=== PATIENT | female | born 1950 | race Caucasian/White ===

== ENCOUNTER 2016-07-10 12:57 | Inpatient (IN) ==
[2016-07-10] MEDS ORDERED: SODIUM CHLORIDE 0.9% 500 ML IV STA (13:31)
--- NOTE | 2016-07-10 13:41 | Emergency Department Note ---
IJan Gwan, am scribing for, and in the presence of, Esdras Salvador MD 13:31 . IMadeleine James D, MD, personally performed the services described in this documentation, ascribed by Clrae Montoya in my presence, and it is both accurate and complete 339 . Arrival - Arrival Chief Complaint: Syncope Stated Complaint: syncope ED Nursing Triage Note: has been generally weak for approx 2 wks but today passed out for over a minute when spouse made her get out of bed ems recorded 84 systolic bp and 46 heart rate on 12 lead on scene FSG 91 VS are better now pt is alert but doesnt remember this morning generally weak at this time Mode of Arrival: Stretcher Limitations: No Limitations Source: Patient, Old Records Reviewed, RN Notes Reviewed - History of Present Illness HPI Narrative: Patient is a 66 y/o female who presents to the ED with a c/o generalized weakness with an onset 2 weeks ago. Patient then stated that she had a syncopal episode when she was getting out of bed at home. stated that pt told him that she was in pain. This prompted him to give pt .5 of Percocet that was not prescribed to pt. said that pt got out of bed and washed dishes. 30 minutes later, attempted to get pt out of bed again and this is when she had the syncopal episode that last a few minutes. He continued to note that pt had not eaten anything that morning, that she got pale right before episode and that she became nauseous. denied that pt lost incontinence or that she was diaphoretic. Pt has a PMHx of HTN, CVA, Alzheimers and Carotid Endarterectomy. Onset (ago): week(s) Consistency: constant Severity: moderate Allergies/Adverse Reactions: Allergies Allergy/AdvReac Type Severity Reaction Status Date / Time No Known Allergies Allergy Verified 02/29/16 09:43 Home Medications: Home Medications Medication Instructions Recorded Confirmed Type Atorvastatin [Lipitor] 80 mg PO QAM 06/02/15 07/10/16 History Donepezil HCl 10 mg PO QPM 06/02/15 07/10/16 History Loratadine [Claritin] 10 mg PO QPM 06/02/15 07/10/16 History Lisinopril [Prinivil] 10 mg PO QPM 02/12/16 07/10/16 History Memantine [Namenda] 10 mg PO BID 02/12/16 07/10/16 History Aspirin EC Tab 81 mg PO QPM 07/10/16 07/10/16 History Clopidogrel Bisulfate [Clopidogrel] 75 mg PO QPM 07/10/16 07/10/16 History Clorazepate [Tranxene] 3.75 mg PO TID 07/10/16 07/10/16 History Fluoxetine HCl [Fluoxetine HCl] 40 mg PO QAM 07/10/16 07/10/16 History amLODIPine [Norvasc] 10 mg PO QPM 07/10/16 07/10/16 History Review of System - Review of System 12 point system: reviewed and no additional remarkable complaints except as stated - Review of System Constitutional: Present: as per HPI, weakness. Absent: chills, fever Eyes: Absent: discharge, pain Head/Ears/Nose/Throat: Absent: earache Cardiovascular: Present: as per HPI, syncope Gastrointestinal: Absent: abdominal pain, nausea, diarrhea Genitourinary female: Absent: abnormal menses, dysuria Musculoskeletal: Absent: arm pain Skin: Absent: rash, lesions Neurological: Present: as per HPI, weakness Medical,Surgical,& Family Hx - Medical History Cardio: History of: Hypertension Psychological: History of: Depression Neurology: History of: Cerebrovascular Accident (15 YRS AGO), Dementia ( ALZHEIMERS X 5 YEARS) No history of: Seizures HEENT: History of: Eye Problem (GLASSES) Other: No history of: Anesthesia Reactions - Surgical History Cardiac Surgeries: Sugical HX of: Carotid Endarterectomy (15 YRS AGO) HEENT Surgeries: Surgical HX of: Carotid Endarterectomy (15 YRS AGO) Reproductive Surgeries: Surgical HX of;: Hysterectomy - Family History Family History: Reports;: Family Heart Disease (father, sisters), Family Hypertension (sisters), Family Stroke (sisters) - Social History Smoking Status: Never smoker Exam Physical Examination: GENERAL: This is a chronically ill-appearing white female in no apparent distress. VITAL SIGNS: HEENT: Head is normocephalic and atraumatic. Pupils are equally round and reactive to light. Extraocular movement are intact. Oropharynx is benign with moist mucous membranes. NECK: Neck is soft and supple without tenderness. There are no masses. There is no lymphadenopathy. LUNGS: Lungs are clear to auscultation bilaterally. Chest rises symmetrically. There is no chest wall tenderness. CV: Heart is regular rate and rhythm without murmurs, rubs, or gallops. ABDOMEN: Abdomen is soft, non-tender to palpation. There are no abnormal masses palpated. There is no organomegaly. Bowel sounds are present and active. SKIN: Skin is warm and dry. No rash. EXTREMITIES: Patient has full range of motion without tenderness. There is no pedal edema. NEUROLOGIC: Awake, alert, and oriented to person. Cranial nerves II through XII are grossly intact. There are no motorsensory deficits. PSYCHIATRIC: Normal affect. Normal mood. Vital Signs: Vital Signs Temperature 97.8 F 07/10/16 12:59 Pulse Rate 51 L 07/10/16 12:59 Respiratory Rate 12 07/10/16 13:40 Blood Pressure 162/53 07/10/16 12:59 O2 Sat by Pulse Oximetry 98 07/10/16 12:59 Results - Labs CBC & BMP: 07/10/16 14:02 07/10/16 14:02 Lab Results: I have reviewed the patients labs - EKG EKG results: interpreted by ERMD - Impressions EKG: Sinus bradycardia with a rate of 50, normal ST-T waves, normal axis. - Diagnostic Findings Procedure: Chest x-ray: image reviewed by me (No infiltrates, no pleural effusions.), CT: image reviewed by me, report reviewed by me (Head CT: 1. Old left middle cerebral artery distribution infarction with underlying encephalomalacia change and porencephalic cystic change. 2. No acute hemorrhage or infarction or mass effect clearly seen. 3. Atrophy.) Disposition Clinical Impression: Syncope, Carotid artery disease, Old left middle cerebral artery infarct Case discussed with: patient Disposition: Still a Patient Condition: Stable
--- NOTE | 2016-07-10 13:46 | CT Report ---
Exam: CT scan of brain without contrast Date: 07/10/2016 Indication: Syncopal episode Comparison: 10/08/2015 Patient's classification: Emergency department Technical: Images were obtained from the skull base to the vertex without the use of intravenous contrast. Dose reduction was performed with decreasing kv and mA and automated exposure Total DLP: 914.6 mGy*cm Findings: Examination reveals encephalomalacia change and old infarction involving the left middle cerebral artery distribution with porencephalic cystic change left lateral ventricle. Component of global atrophy is present the brainstem is intact the cerebellum is unremarkable. The calvarium is intact. The paranasal sinuses globes and sella mastoids are unremarkable. Impression: 1. Old left middle cerebral artery distribution infarction with underlying encephalomalacia change and porencephalic cystic change. 2. No acute hemorrhage or infarction or mass effect clearly seen. 3. Atrophy PROCEDURE INTERPRETED AT [facility] DEPARTMENT OF RADIOLOGY Final Report Signed by: Dr. Joseph Vazquez
--- NOTE | 2016-07-10 13:56 | XRay Report ---
Portable chest Date: 07/10/2016 Clinical history: Shortness of breath Comparison: 02/11/2016 Technique: Portable AP sitting chest Findings: The heart is normal in size with calcification in the aortic knob. The lungs and mediastinum are stable in appearance with no acute osseous findings. Impression: No acute cardiopulmonary pathology identified. PROCEDURE INTERPRETED AT [facility] DEPARTMENT OF RADIOLOGY Final Report Signed by: Dr. Nelsy Lema
[2016-07-10 14:11] LABS: Basophils % 0.4 % (0.0-0.8); Eosinophils # 0.2 10*3/uL (0.0-0.87); Eosinophils % 3.3 % (0.00-10.9); Hematocrit 31.2 VOL% (35.7-47.0); Immature Granulocytes % 0.4 %; Immature Granulocytes Absolute 0.02 #; Lymphocytes # 0.7 10*3/uL (1.4-4.0); Lymphocytes % 15.3 % (21.3-54.2); Mean Corpuscular HGB Conc 35.3 GM/DL (32-36); Mean Corpuscular Hemoglobin 31 PG (27-34); Mean Corpuscular Volume 88.4 FL (87-102); Mean Platelet Volume 10.2 FL (9.6-12.0); Monocytes # 0.4 10*3/uL (0.11-0.8); Monocytes % 8.6 % (1.7-12.7); Neutrophils # 3.4 10*3/uL (1.4-7.4); Platelet Count 219 T/CUMM (130-400); Red Blood Count 3.53 MC/CUMM (3.8-5.5); Red Cell Distribution Width 12.4 % (9.3-17.3); White Blood Count 4.8 T/CUMM (4-12)
[2016-07-10 14:20] LABS: PT Patient Result 10.5 SECS
[2016-07-10 14:37] LABS: Alanine Aminotransferase 25 U/L (13-56); Albumin 3.8 G/DL (3.4-5.0); Alkaline Phosphatase 114 U/L (45-117); Aspartate Amino Transferase 23 U/L (0-37); Blood Urea Nitrogen 18 MG/DL (7-18); Calcium 8.7 MG/DL (8.5-10.1); Glucose 82 MG/DL (74-106); Osmolality,Calculated 279.4 MOS/KG (273-304); Potassium 4.1 MMOL/L (3.5-5.1); Sodium 140 MMOL/L (136-145); Total Protein 6.5 G/DL (6.4-8.3); Troponin I Only < 0.015 NG/ML (0.00-0.045)
[2016-07-10 15:49] LABS: Apearance,Urine CLEAR (Clear); Bacteria,Urine Occasional /HPF (Few); Bilirubin,Urine Negative (Negative); Blood, Urine Negative (Negative); Glucose,Urine (UA) Negative (Negative); Ketones,Urine Negative (Negative); Mucus,Urine Occasional /LPF (Occasional); Nitrite,Urine Negative (Negative); Protein,Urine Negative; RBC,Urine 1 /HPF (0-4); Squamous Epithelial Cell,Urine Occasional /HPF (0-10); Urine Color Yellow (Yellow); Urine Specific Gravity 1.006 (1.001-1.035); Urine Urobilinogen < 2.0 EU/DL (0.2-1.0); WBC,Urine 3 /HPF (0-6)
[2016-07-10 15:50] LABS: Barbiturates Screen,Urine Negative (Negative); Benzodiazepines Screen,Urine Positive (Negative); Cannabinoid Screen,Urine Negative (Negative); Opiate Screen,Urine Negative (Negative); Phencyclidine Screen,Urine Negative (Negative)
[2016-07-10] MEDS ORDERED: DOCUSATE SODIUM 100 MG CAPSULE PO PRN (16:07)
[2016-07-10] MEDS ORDERED: ONDANSETRON 4 MG/2 ML VIAL IV PRN (16:07)
[2016-07-10] MEDS ORDERED: ACETAMINOPHEN 325 MG TABLET PO PRN (16:07)
[2016-07-10] MEDS ORDERED: ZALEPLON 5 MG CAPSULE PO PRN (16:07)
--- NOTE | 2016-07-10 16:11 | Hospitalist History & Physical ---
<Pastora Davisda - Last Filed: 07/10/16 16:48> Assessment and Plan (1) Bradycardia Status: Acute Assessment and plan: Heart rate in 50's at the time of ED presentation. Review of EKG revealed bradcardia on last encounter 02/07; this may be her baseline. Will monitor; if symptomatic; will consult cardiology. Current Visit: Yes (2) Syncope Status: Acute Assessment and plan: The patient has experienced episodes similar in nature in the past. We will conduct a syncope work-up and review. Not sure if this was truly syncope, reported at ED triage that he gave patient Percocet; this could be the causative factor; however we will work-up. Current Visit: Yes (3) EDEL (acute kidney injury) Status: Acute Assessment and plan: Creatinine 1.40 at admission; upon review of previous records; her baseline is around 1.5. We will monitor. Current Visit: No History of Present Illness Chief complaint: syncope History of present illness: This is a very pleasantly confused 66 year old female that presented to the ED at [facility] per EMS for evaluation of syncope. She has a very complex medical history significant for dementia, syncope, hypertension, coronary artery disease, and cerebral vascular accident.She has a surgical history of hysterectomy and carotid endarterectomy The patient is a poor historian; her is at bedside; he will serve as historian. Per report, the patient was walking when the episode occurred. He reports that she became lightheaded and attempted to grab the door frame for support from falling. He was unable to support her weight, so he guided her to the floor. He reports that she did strike her head; however did not lose consciousness. He reports that he requested assistance from a friend who was there mowing the yard to assist her off the floor. He reports a similar incident in the past which was attributed to hypotension. At the time of ED presentation, the patient was noted to be hypotensive; fluid boluses were given. In addition, she was noted to be bradycardic with pulse rates in the 50's. Labs were obtained which only revealed a slight elevation in creatinine at 1.40. Cardiac enzymes were noted at 0.015. Chest radiograph was essentially unremarkable. CT head revealed old middle cerebral artery distribution infarction with underlying encephalomalacia change and porencephalic cystic change, no acute hemorrhage or infarction or mass effect clearly seen and atrophy. Electrocardiogram revealed sinus bradycardia. After brief discussion with both Dr. Salvador and Dr. Tolliver, the patient will be admitted to the hospitalist service for continuation of care. Home Medications Medication Instructions Recorded Confirmed Type Atorvastatin [Lipitor] 80 mg PO QAM 06/02/15 07/10/16 History Donepezil HCl 10 mg PO QPM 06/02/15 07/10/16 History Loratadine [Claritin] 10 mg PO QPM 06/02/15 07/10/16 History Lisinopril [Prinivil] 10 mg PO QPM 02/12/16 07/10/16 History Memantine [Namenda] 10 mg PO BID 02/12/16 07/10/16 History Aspirin EC Tab 81 mg PO QPM 07/10/16 07/10/16 History Clopidogrel Bisulfate [Clopidogrel] 75 mg PO QPM 07/10/16 07/10/16 History Clorazepate [Tranxene] 3.75 mg PO TID 07/10/16 07/10/16 History Fluoxetine HCl [Fluoxetine HCl] 40 mg PO QAM 07/10/16 07/10/16 History amLODIPine [Norvasc] 10 mg PO QPM 07/10/16 07/10/16 History Allergies Allergy/AdvReac Type Severity Reaction Status Date / Time No Known Allergies Allergy Verified 02/29/16 09:43 Medical,Surgical,& Family Hx - Medical History Cardio: History of: Hypertension Psychological: History of: Depression Neurology: History of: Cerebrovascular Accident (15 YRS AGO), Dementia ( ALZHEIMERS X 5 YEARS) No history of: Seizures HEENT: History of: Eye Problem (GLASSES) Other: No history of: Anesthesia Reactions - Surgical History Cardiac Surgeries: Sugical HX of: Carotid Endarterectomy (15 YRS AGO) HEENT Surgeries: Surgical HX of: Carotid Endarterectomy (15 YRS AGO) Reproductive Surgeries: Surgical HX of;: Hysterectomy - Family History Family History: Reports;: Family Heart Disease (father, sisters), Family Hypertension (sisters), Family Stroke (sisters) - Social History Smoking Status: Never smoker Exam - Constitutional Vitals: Period Temp Pulse Resp BP Sys/Cardona Pulse Ox Last 24 Hr 97.8 F 51-57 12-14 146-162/34-53 98 General appearance: normal weight, no acute distress - Head Head exam: Present: normal inspection, normocephalic, atraumatic - Eye Eye exam: Present: EOMI. Absent: conjunctival injection, nystagmus Pupils: Present: SILVIA, normal accommodation - ENT ENT exam: Present: normal exam, normal external ear exam, normal oropharynx - Neck Neck exam: Present: normal inspection. Absent: lymphadenopathy, meningismus, tenderness, thyromegaly - Respiratory Respiratory exam: Present: clear to auscultation bilaterally. Absent: rales, rhonchi, stridor, wheezes - Cardiovascular Cardiovascular exam: Present: bradycardia. Absent: carotid bruit, diastolic murmur, gallop, JVD, rubs, systolic murmur - GI/Abdominal GI/Abdominal exam: Present: normal bowel sounds, soft - Extremities Exam Extremities exam: Present: normal inspection, normal capillary refill, full ROM. Absent: edema - Back Exam Back exam: Present: normal inspection - Neurological Exam Neurological exam: Present: alert, altered - Psychiatric Psychiatric exam: Present: normal affect, normal mood - Skin Skin exam: Present: normal color, warm, dry Results - Labs CBC & BMP: 07/10/16 14:02 07/10/16 14:02 Lab Results: I have reviewed the past 24 hour labs Quality Measures - VTE Deep Vein Thrombosis/Pulmonary Embolism Present on Admission: No - Stroke Onset of Symptoms Date: 06/26/16 <Inge Tolliver - Last Filed: 07/10/16 17:04> History of Present Illness History of present illness: Patient seen and examined along with LINDA Davis, agree with history, assessment and plan as documented. 66 y/o WF with dementia admitted with syncope and loc. Patient is unable to help with the history given her dementia. Her denies urinary or bowel incontinence. He does report that the patient did faint and was out for ~10 minutes. She did not fall but "slumped" over. She will be admitted for syncope work-up. Exam - Constitutional Vitals: Period Temp Pulse Resp BP Sys/Cardona Pulse Ox Last 24 Hr 97.8 F 50-57 12-14 75-181/34-62 98-99 Results - Labs CBC & BMP: 07/10/16 14:02 07/10/16 14:02
[2016-07-10] MEDS ORDERED: ENOXAPARIN 40 MG/0.4 ML SYRINGE SUBCUT SCH (16:30)
[2016-07-10 16:37] LABS: Risk Ratio 1.82; Thyroid Stimulating Hormone 3.02 uIU/ml (0.358-3.74); VLDL CHOLESTEROL 17.4 MG/DL
--- NOTE | 2016-07-10 17:32 | Ultrasound Report ---
US carotid duplex BI Indication: Syncope Comparison: None. Technique: Using transcutaneous probe, routine carotid arterial duplex ultrasound performed. Ultrasound images were captured and stored. Estimation of stenosis will be made using indirect NASCET criteria. Ultrasound images were captured and stored. Findings: Grayscale and color Doppler findings: Echogenic plaque is noted both within the right and left carotid artery bulb with an overall increase suggested on the right compared to left. Peak systolic velocities are as follows (centimeters per second): Right CCA: 151. Right proximal ICA: 182. Right distal ICA: 162. Right ICA/CCA ratio: 1.2. Left CCA: 75. Left proximal ICA: 68. Left distal ICA: 68. Left ICA/CCA ratio: 0.9. External carotid arteries: External carotid arteries are bilaterally patent. Vertebral arteries: Vertebral arteries bilaterally demonstrate antegrade flow. Impression: 1. Moderately large amount of echogenic plaque within the right carotid artery bulb is associated with elevation of velocities in the range of 50-69% stenosis. 07/10/2016 5:28 PM PROCEDURE INTERPRETED AT [facility] DEPARTMENT OF RADIOLOGY Final Report Signed by: Dr. Romero Horn
[2016-07-10] MEDS: SODIUM CHLORIDE 0.9% 1,000 ML IV SCH (17:55)
[2016-07-10] MEDS ORDERED: LISINOPRIL 10 MG TABLET PO SCH (19:00)
[2016-07-10] MEDS ORDERED: ASPIRIN EC 81 MG TABLET PO SCH (19:00)
[2016-07-10] MEDS ORDERED: DONEPEZIL 10 MG TABLET PO SCH (19:00)
[2016-07-10] MEDS ORDERED: CLOPIDOGREL 75 MG TABLET PO SCH (19:00)
[2016-07-10] MEDS ORDERED: amLODIPine 5 MG TABLET PO SCH (19:00)
--- NOTE | 2016-07-10 20:14 | Ultrasound Report ---
US venous doppler LE BI Indication: Lower extremity swelling and pain. Comparison: None. Technique: Using a transcutaneous probe, grayscale, spectral Doppler, and color Doppler images of the bilateral lower extremity venous structures were captured and stored. Grayscale images prior to and following compression were obtained. Interrogated venous structures include the bilateral common femoral vein, superficial femoral vein (proximal, mid, and distal), and popliteal vein. Findings: There is no evidence of thrombus within the interrogated venous structures. the interrogated venous segments demonstrate presence of both color flow and spectral flow. Impression: 1. No evidence of venous thrombosis. 07/10/2016 8:07 PM PROCEDURE INTERPRETED AT [facility] DEPARTMENT OF RADIOLOGY Final Report Signed by: Dr. Romero Horn
[2016-07-10] MEDS: MEMANTINE 10 MG TABLET PO SCH (21:24)
[2016-07-10] MEDS: amLODIPine 10 MG TABLET PO SCH (21:24)
[2016-07-10] MEDS: CLOPIDOGREL 75 MG TABLET PO SCH (21:24)
[2016-07-10] MEDS: DONEPEZIL 10 MG TABLET PO SCH (21:25)
[2016-07-10] MEDS: ASPIRIN EC 81 MG TABLET PO SCH (21:25)
[2016-07-10] MEDS: LISINOPRIL 10 MG TABLET PO SCH (21:26)
[2016-07-10] MEDS: CLORAZEPATE 3.75 MG TABLET PO SCH (21:28)
[2016-07-11] MEDS: SODIUM CHLORIDE 0.9% 1,000 ML IV SCH (04:42)
[2016-07-11] MEDS ORDERED: LABETALOL 20 MG/4 ML SYRINGE IV ONE (05:16)
[2016-07-11] MEDS ORDERED: hydrALAZINE 20 MG/1 ML VIAL IV PRN (05:16)
[2016-07-11 05:29] LABS: Eosinophils # 0.2 10*3/uL (0.0-0.87); Eosinophils % 6.6 % (0.00-10.9); Hematocrit 28.9 VOL% (35.7-47.0); Hemoglobin 9.9 GM/DL (12.0-16.0); Immature Granulocytes % 0.3 %; Immature Granulocytes Absolute 0.01 #; Lymphocytes # 1.1 10*3/uL (1.4-4.0); Lymphocytes % 37.2 % (21.3-54.2); Mean Corpuscular HGB Conc 34.3 GM/DL (32-36); Mean Corpuscular Hemoglobin 30 PG (27-34); Mean Corpuscular Volume 88.7 FL (87-102); Mean Platelet Volume 10.7 FL (9.6-12.0); Monocytes # 0.4 10*3/uL (0.11-0.8); Neutrophils # 1.3 10*3/uL (1.4-7.4); Neutrophils % 42.9 % (38.7-73.9); Platelet Count 202 T/CUMM (130-400); Red Blood Count 3.26 MC/CUMM (3.8-5.5); Red Cell Distribution Width 12.4 % (9.3-17.3)
[2016-07-11 05:52] LABS: Burr Cells Few; Platelet Estimate Normal
[2016-07-11 05:53] LABS: Microcytosis Slight; Ovalocytes 1+
[2016-07-11 05:54] LABS: Anisocytosis Slight
[2016-07-11 06:04] LABS: Albumin 3.3 G/DL (3.4-5.0); Bilirubin,Total 0.9 MG/DL (0.2-1.0); Calcium 8.6 MG/DL (8.5-10.1); Osmolality,Calculated 287.7 MOS/KG (273-304); Potassium 4.2 MMOL/L (3.5-5.1); Total Protein 5.4 G/DL (6.4-8.3)
--- NOTE | 2016-07-11 07:08 | XRay Report ---
Portable chest Date: 07/11/2016 Clinical history: COPD Comparison: 07/10/2016 Technique: Portable AP sitting chest Findings: The heart is normal in size. The lungs are over expanded. Stable mediastinum and osseous structures. Impression: COPD with no definite infiltration. PROCEDURE INTERPRETED AT [facility] DEPARTMENT OF RADIOLOGY Final Report Signed by: Dr. Nelsy Lema
--- NOTE | 2016-07-11 07:57 | EKG Report ---
Stationary ECG Study 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
[2016-07-11] MEDS: ATORVASTATIN 80 MG TABLET PO SCH (10:39)
[2016-07-11] MEDS: MEMANTINE 10 MG TABLET PO SCH ×2 (10:39→21:11)
[2016-07-11] MEDS: FLUoxetine 20 MG CAPSULE PO SCH (10:39)
[2016-07-11] MEDS: PANTOPRAZOLE 40 MG TABLET PO SCH (10:40)
[2016-07-11] MEDS: CLORAZEPATE 3.75 MG TABLET PO SCH ×3 (10:45→21:11)
--- NOTE | 2016-07-11 14:35 | Physician Query Form ---
CLICK EDIT DOCUMENT TO SELECT QUERY ANSWER --> OK --> SIGN Heidi Carnes RN Clinical Store Deli Manager W) [phone] (f) [phone] [email or web address] PROVIDERS: Make your selection(s) from the choices in EACH section by typing an "x" and enter comments in the comment section. Please use your independent medical judgment in providing your response. This request does not imply that any particular answer is desired or expected. 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 Unix System Administrator notes: Loss of body fat. Loss of muscle mass. Underweight Based on the above, which following choice most accurately represents the patient's nutritional status? ( ) Malnutrition ( ) mild ( ) moderate ( ) severe ( ) Protein calorie malnutrition ( ) mild ( ) moderate ( ) severe ( ) Emaciation due to malnutrition ( ) Nutritional marasmus ( ) Cachexia ( X) Underweight ( ) No nutritional deficiency ( ) Other, please specify: ( ) Clinically unable to determine Mild Malnutrition (BMI < 18.5, % Normal Body Weight 85-95%) Moderate Malnutrition (BMI < 17, % Normal Body Weight 75-85%) Severe Malnutrition (BMI < 16, % Normal Body Weight < 75%) Source: [place] COMMENTS: PLEASE ALSO DOCUMENT RESPONSE IN PROGRESS NOTES AND/OR DISCHARGE SUMMARY Use of terms such as suspected, likely, or probable (associated with a specific diagnosis that is being evaluated, monitored, or treated as if it exists) are acceptable and can be restated in the discharge summary if not ruled out. MTDD
--- NOTE | 2016-07-11 16:04 | Hospitalist Progress Note ---
Assessment and Plan (1) Dementia Status: Chronic Current Visit: No Qualifiers: Alzheimer's disease onset: early-onset (2) HTN (hypertension) Status: Chronic Current Visit: No (3) Syncope Status: Acute Current Visit: Yes Hospitalist: Subjective Interval history: No acute events overnight. denies any repeat syncopal episodes. Monitoring on telemetry. Carotid dopplers noted. Echo pending. Possible discharge tomorrow. Exam - Constitutional Vitals: Period Temp Pulse Resp BP Sys/Cardona Pulse Ox Last 24 Hr 97.0 F-98.5 F 51-58 14-20 111-211/34-88 94-99 General appearance: normal weight - Head Head exam: Present: normocephalic, atraumatic - Eye Eye exam: Present: EOMI Pupils: Present: SILVIA - ENT ENT exam: Present: normal exam - Neck Neck exam: Present: normal inspection - Respiratory Respiratory exam: Present: clear to auscultation bilaterally - Cardiovascular Cardiovascular exam: Present: regular rate and rhythm - GI/Abdominal GI/Abdominal exam: Present: normal bowel sounds, soft. Absent: tenderness, rebound - Extremities Exam Extremities exam: Present: normal inspection - Back Exam Back exam: Present: normal inspection - Neurological Exam Neurological exam: Present: alert, altered - Psychiatric Psychiatric exam: Present: normal affect, normal mood - Skin Skin exam: Present: warm, intact Results - Labs CBC & BMP: 07/11/16 04:16 07/11/16 04:16 Quality Measures - VTE Deep Vein Thrombosis/Pulmonary Embolism Present on Admission: No - Stroke Onset of Symptoms Date: 06/26/16
[2016-07-11] MEDS: DONEPEZIL 10 MG TABLET PO SCH (21:11)
[2016-07-11] MEDS: CLOPIDOGREL 75 MG TABLET PO SCH (21:11)
[2016-07-11] MEDS: ASPIRIN EC 81 MG TABLET PO SCH (21:11)
[2016-07-11] MEDS: amLODIPine 10 MG TABLET PO SCH (21:11)
[2016-07-11] MEDS: LISINOPRIL 10 MG TABLET PO SCH (21:11)
[2016-07-12 06:00] LABS: Basophils % 0.9 % (0.0-0.8); Eosinophils # 0.3 10*3/uL (0.0-0.87); Eosinophils % 7.4 % (0.00-10.9); Hematocrit 28.5 VOL% (35.7-47.0); Immature Granulocytes % 0.2 %; Immature Granulocytes Absolute 0.01 #; Lymphocytes # 1.3 10*3/uL (1.4-4.0); Lymphocytes % 27.9 % (21.3-54.2); Mean Corpuscular HGB Conc 35.1 GM/DL (32-36); Mean Corpuscular Hemoglobin 31 PG (27-34); Mean Corpuscular Volume 89.3 FL (87-102); Mean Platelet Volume 10.5 FL (9.6-12.0); Monocytes # 0.4 10*3/uL (0.11-0.8); Monocytes % 9.6 % (1.7-12.7); Neutrophils # 2.5 10*3/uL (1.4-7.4); Platelet Count 202 T/CUMM (130-400); Red Blood Count 3.19 MC/CUMM (3.8-5.5); Red Cell Distribution Width 12.3 % (9.3-17.3); White Blood Count 4.6 T/CUMM (4-12)
[2016-07-12 08:27] VITALS: BP 137/56
[2016-07-12 08:29] LABS: Alanine Aminotransferase 21 U/L (13-56); Albumin 3.1 G/DL (3.4-5.0); Alkaline Phosphatase 91 U/L (45-117); Aspartate Amino Transferase 24 U/L (0-37); Bilirubin,Total < 0.39 MG/DL (0.2-1.0); Blood Urea Nitrogen 13 MG/DL (7-18); Calcium 8.5 MG/DL (8.5-10.1); Glucose 86 MG/DL (74-106); Magnesium 1.9 MG/DL (1.8-2.4); Osmolality,Calculated 284.8 MOS/KG (273-304); Potassium 3.9 MMOL/L (3.5-5.1); Sodium 144 MMOL/L (136-145); Total Protein 5.3 G/DL (6.4-8.3)
[2016-07-12] MEDS: ATORVASTATIN 80 MG TABLET PO SCH (08:51)
[2016-07-12] MEDS: MEMANTINE 10 MG TABLET PO SCH (08:52)
[2016-07-12] MEDS: FLUoxetine 20 MG CAPSULE PO SCH (08:52)
[2016-07-12] MEDS: PANTOPRAZOLE 40 MG TABLET PO SCH (08:53)
[2016-07-12] MEDS: CLORAZEPATE 3.75 MG TABLET PO SCH (08:53)
--- NOTE | 2016-07-12 10:22 | ECHO Report ---
Amirah Yousif Exam Date: 07/11/2016 09:03 Referring Physician: Technologist: Frances Sameuls Age: 66 Ht (in): 65 Wt (lb): 107 Gender: F Exam [facility]: [facility] Echo Indications: Bradycardia, unspecified, Syncope and collapse, EDEL BP: 182 / 72 HR: 54 Rhythm: Sinus Technical Quality: Good IMPRESSIONS Normal left ventricular cavity size. Mild left ventricular hypertrophy. Left ventricular ejection fraction is estimated at 60 %. The right ventricle is normal in size and function. The right atrium is normal in size. The left atrium is normal in size. Morphologically normal mitral valve without significant stenosis or prolapse. There is no mitral regurgitation. Morphologically normal aortic valve without significant sclerosis or stenosis. There is no aortic regurgitation. Morphologically normal tricuspid valve. Trace to mild tricuspid valve regurgitation. Tricuspid regurgitation velocities suggest a PAP of 37 mmHg. Morphologically normal pulmonic valve without significant stenosis. There is no pulmonic regurgitation. Normal pericardium without effusion. Normal ascending aorta dimension. MEASUREMENTS (Male / Female) Normal Values 2D ECHO LV Diastolic Diameter PLAX 3.8 cm 4.2 - 5.9 / 3.9 - 5.3 cm LV Systolic Diameter PLAX 2.6 cm LV Fractional Shortening PLAX 29.3 % IVS Diastolic Thickness 1.1 cm 0.6 - 1.0 / 0.6 - 0.9 cm LVPW Diastolic Thickness 1.1 cm 0.6 - 1.0 / 0.6 - 0.9 cm RV Internal Dim ED PLAX 2.0 cm Aortic Root Diameter 2.3 cm LA Systolic Diameter LX 3.3 cm 3.0 - 4.0 / 2.7 - 3.8 cm DOPPLER TR Peak Velocity 258.0 cm/s TR Peak Gradient 26.6 mmHg FINDINGS Left Ventricle Normal left ventricular cavity size. Mild left ventricular hypertrophy. Left ventricular ejection fraction is estimated at 60 %. Right Ventricle The right ventricle is normal in size and function. Right Atrium The right atrium is normal in size. Left Atrium The left atrium is normal in size. Mitral Valve Morphologically normal mitral valve without significant stenosis or prolapse. There is no mitral regurgitation. Aortic Valve Morphologically normal aortic valve without significant sclerosis or stenosis. There is no aortic regurgitation. Tricuspid Valve Morphologically normal tricuspid valve. Trace to mild tricuspid valve regurgitation. Tricuspid regurgitation velocities suggest a PAP of 37 mmHg. Pulmonic Valve Morphologically normal pulmonic valve without significant stenosis. There is no pulmonic regurgitation. Pericardium Normal pericardium without effusion. Aorta Normal ascending aorta dimension. Newton Mistry MD (Electronically Signed) Final Date: 12 Jul 2016 10:21
--- NOTE | 2016-07-12 11:35 | Discharge Summary ---
<Néstor Davis - Last Filed: 07/12/16 11:47> Hospital Course - Hospital Course Hospital Course: This is a very pleasantly confused 66 year old female that presented to the ED at [facility] on 07/10 per EMS for evaluation of syncope. She has a very complex medical history significant for dementia, syncope, hypertension, coronary artery disease, and cerebral vascular accident. She has a surgical history of hysterectomy and carotid endarterectomy. Due to her disease process, her baseline is confused ; her was at bedside; he served as historian. Per report, the patient was walking when the episode occurred. He reported that she became lightheaded and attempted to grab the door frame for support from falling. He was unable to support her weight, so he guided her to the floor. He reported that she did strike her head; however did not lose consciousness. He reported that he requested assistance from a friend who was there mowing the yard to assist her off the floor. He reported a similar incident in the past which was attributed to hypotension. At the time of ED presentation, the patient was noted to be hypotensive; fluid boluses were given. In addition, she was noted to be bradycardic with pulse rates in the 50's. Labs were obtained which only revealed a slight elevation in creatinine at 1.40. Cardiac enzymes were noted at 0.015. Chest radiograph was essentially unremarkable. CT head revealed old middle cerebral artery distribution infarction with underlying encephalomalacia change and porencephalic cystic change, no acute hemorrhage or infarction or mass effect clearly seen and atrophy. Electrocardiogram revealed sinus bradycardia. The patient was subsequently admitted to the hospitalist service for continuation of care. A full syncope work-up was competed. Cardiac enzymes were benign. On 07/10, bilateral carotid endarterectomy was performed which revealed a large amount of echogenic plaque formation to the right carotid artery bulb. Venous dopplers were also performed that day and were negative for deep vein thrombosis. In addition, echocardiogram was performed on 07/10 which reported mild left ventricular hypertrophy and an estimated EF at 65%. Her condition is stable. She has not experienced any significant overnight events. Today, we feel that she is indeed, appropriate for discharge with PCP follow-up as directed. Diagnosis - Discharge Diagnosis (1) Bradycardia Status: Acute (2) Syncope Status: Acute (3) EDEL (acute kidney injury) Status: Acute Specialty Discharge - Follow Up or Referrals Follow up with: Carlos Badillo MD [Physician] - 2 Weeks (Hospital f/u, carotid plaques) Discharge Plan - Discharge Medications Continue Atorvastatin [Lipitor] 80 mg PO QAM Loratadine [Claritin] 10 mg PO QPM Donepezil HCl 10 mg PO QPM Memantine [Namenda] 10 mg PO BID Clopidogrel Bisulfate [Clopidogrel] 75 mg PO QPM Clorazepate [Tranxene] 3.75 mg PO TID amLODIPine [Norvasc] 10 mg PO QPM Lisinopril [Prinivil] 10 mg PO QPM Aspirin EC Tab 81 mg PO QPM Fluoxetine HCl 40 mg PO QAM - Follow Up or Referral - Forms/Instructions Exam - Constitutional Vitals: Period Temp Pulse Resp BP Sys/Cardona Pulse Ox Last 24 Hr 96.7 F-99.5 F 52-63 16-20 137-168/55-76 95-98 Discharge Results Procedures and tests throughout hospitalization: Pending Orders 07/10/16 16:08 Urinalysis Stat Urine Culture Stat 07/13/16 04:00 CBC [Comp Blood Count Auto Diff] IN AM Magnesium IN AM Phosphorous IN AM Labs on day of discharge: Labs from last 24 hours 07/12/16 07/12/16 07/12/16 Unknown Unknown 05:24 WBC 4.6 D RBC 3.19 L Hgb 10.0 L Hct 28.5 L MCV 89.3 MCH 31 MCHC 35.1 RDW 12.3 Plt Count 202 MPV 10.5 Neut % (Auto) 54.0 Lymph % (Auto) 27.9 [place] % (Auto) 9.6 Eos % (Auto) 7.4 Baso % (Auto) 0.9 H Neut # (Auto) 2.5 Lymph # (Auto) 1.3 L [place] # (Auto) 0.4 Eos # (Auto) 0.3 Baso # (Auto) 0.0 Immature Gran % 0.2 Nucleated RBC % 0.0 Immature Gran # 0.01 Nucleated RBCs # 0.00 Sodium 144 Potassium 3.9 Chloride 110 H Carbon Dioxide 26 Anion Gap 11.9 BUN 13 Creatinine 1.30 H GFR Calculation 35 BUN/Creatinine Ratio 10.00 Glucose 86 Calculated Osmolality 284.8 Calcium 8.5 Phosphorus 3.3 Magnesium 1.9 Total Bilirubin < 0.39 AST 24 ALT 21 Alkaline Phosphatase 91 Total Protein 5.3 L Albumin 3.1 L Globulin 2.2 L Albumin/Globulin Ratio 1.4 DS: Provider Date of admission: 07/10/16 15:58 Primary care physician: Joseph Simmons MD Attending physician on admission: DYLAN Ortiz Consults: 07/10/16 17:37 Consult to Occupational Therapy [CONS] Routine Reason for Occupational Therapy: Evaluate and Treat Consult to Physical Therapy [CONS] Routine Reason for Physical Therapy: Evaluate and Treat Discharging clinician: Néstor Davis CNP <Inge Tolliver - Last Filed: 07/12/16 11:56> Hospital Course - Hospital Course Hospital Course: Patient seen and examined independently of LINDA Davis, agree with hospital course as documented. Patient has reached maximum benefit of inpatient stay and will be discharged to home with her . Syncope work-up negative so far. Patient took her 's percocet before incident, might have been a factor. - Time spent with patient Time with patient DS: Less than 30 minutes Diagnosis - Discharge Diagnosis (1) Dementia Status: Chronic (2) HTN (hypertension) Status: Chronic (3) Syncope Status: Resolved Discharge Plan - Discharge Data Condition at Discharge: Stable Discharge Diet: advance to your usual diet Activity: increase activity as tolerated Hygiene: no restrictions Weight Bearing at Discharge: weight bear as tolerated Contact your physician if you experience:: fever over 101, Shortness of breath Exam - Constitutional General appearance: under weight - Head Head exam: Present: normocephalic, atraumatic - Eye Eye exam: Present: EOMI Pupils: Present: SILVIA - ENT ENT exam: Present: normal exam - Neck Neck exam: Present: normal inspection - Respiratory Respiratory exam: Present: clear to auscultation bilaterally. Absent: rhonchi, wheezes - Cardiovascular Cardiovascular exam: Present: regular rate and rhythm - GI/Abdominal GI/Abdominal exam: Present: normal bowel sounds, soft - Extremities Exam Extremities exam: Present: normal inspection - Back Exam Back exam: Present: normal inspection - Neurological Exam Neurological exam: Present: alert, altered - Psychiatric Psychiatric exam: Present: normal affect, normal mood - Skin Skin exam: Present: warm, intact
== END 2016-07-12 12:40 | disposition home or self-care (01) | DRG 309 ==
LOC: EDUNIT# → N.ED 12:57 → N.EDINP 15:58 → N.TELES 17:00
PROVIDERS: ADMIT Physician Assistant; ATTEND Internal Medicine